=== PATIENT | female | born 1995 | race Caucasian/White ===

== ENCOUNTER 2023-01-18 10:18 | Emergency (ER) | payer OTHER, SELFPAY ==
[2023-01-18] VITALS (17 sets, daily range): BP systolic 105–128; BP diastolic 59–79; PULSE 59–98; RESP 11–22; TEMP 36.9; O2SAT 97–100
--- NOTE | ~2023-01-18 | CT_ITS ---
EXAMINATION: CTA brain carotid DATE: 01/18/2023 14:45 INDICATION: Dizziness. TECHNIQUE: Computed tomographic angiography (CTA) of the head was performed without and with 100 mL O mnipaque-350 intravenous contrast. CTA of the neck was performed with intravenous contrast. Automated exposure control and iterative reconstruction technique were employed. The dose-length product was 1 673.52 mGy-cm. Maximum intensity projection and volume rendered 3D-reconstructions were created by torsten technologist on a separate workstation. COMPARISON: None. FINDINGS: HEAD CTA: There is no intracranial hemorrhage, acute infarction, or abnormal intracranial mass lesion . The ventricles are normal in size. The paranasal sinuses are clear. The mastoid air cells are chandrika l. The orbits are normal. The vertebral arteries dominant. There is no significant stenosis of basila r artery or the posterior cerebral arteries. There is no significant stenosis of the intracranial int ernal carotid arteries or anterior or middle cerebral arteries. Anterior communicating artery is norm al. The posterior communicating arteries are normal. There is no aneurysm. NECK CTA: There is mild scarring at the lung apices. There are no pathologically enlarged lymph nodes . There is no significant stenosis of the vertebral arteries. There is no visible plaque in the proxi mal internal carotid arteries. There is 0% stenosis of the proximal right internal carotid artery rel ative to normal distal artery lumen diameter (NASCET criteria). There is 0% stenosis of the proximal left internal carotid artery relative to normal distal artery lumen diameter. There is mild thoracic kyphosis. IMPRESSION: 1. Normal brain. No aneurysm or significant intracranial internal stenosis. 2. 0% stenosis of the proximal internal carotid arteries relative to normal distal artery lumen diame ters (NASCET criteria). Reviewed, dictated and finalized at location E. IMPRESSION: 1. Normal brain. No aneurysm or significant intracranial internal stenosis. 2. 0% stenosis of the proximal internal carotid arteries relative to normal dis sampson artery lumen diameters (NASCET criteria).
--- NOTE | 2023-01-18 12:53 | ED.DIZZY ---
HPI - Dizziness General Chief Complaint: Dizziness Stated Complaint: Dizzy spells Time Seen by Provider: 01/18/23 12:52 History of Present Illness HPI Narrative: Patient is a healthy 27-year-old female here with dizziness. Patient states that the dizziness has been intermittent over the last 4 days. First episode began she was reaching up and looking upwards to grab something off of a shelf. She notes that she had an episode of her vision going black and then when it returned a few seconds later she felt dizziness. She describes the dizziness as feeling like she may pass out with her vision tunneling in and out and her vision slanting sideways. She feels as though she may fall over and is unsteady on her feet when this occurs. She notes it has been intermittent and the next episode occurred last night and again this morning. This morning's episode seemed to be much worse and associated with a diffuse headache which prompted her visit to the emergency department. No prior history of migraines or vertigo in the past. No recent illnesses. She has had normal p.o. intake and has not had any diarrhea or vomiting. She notes no upper or lower extremity weakness, no facial asymmetry. No prior history of PE/DVT. No prodromal chest pain or shortness of breath. Last menstrual period was last week and normal in heaviness. Related Data Allergies Allergy/AdvReac Type Severity Reaction Status Date / Time No Known Allergies Allergy Verified 01/18/23 11:54 Review of Systems Review of Systems: All systems reviewed & are unremarkable except as noted in HPI and below PMFSH Past Medical History Medical History (Updated 01/18/23 @ 16:05 by Radha Waldron MD) Anxiety Asthma H/O gastroesophageal reflux (GERD) Family History Family History (Updated 01/18/23 @ 09:37 by Chandrika Palomino MA) Grandparent Diabetes mellitus Hypertension Depression Cerebrovascular accident Social History Social History (Updated 01/18/23 @ 09:39 by Chandrika Palomino MA) Smoking status: Never smoker Alcohol intake: current Alcohol use details: Beer Substance use: never Substance use type: does not use Living arrangements: with family Occupation/Education: occupation Additional occupation/education comments: [employer] Exam Narrative: GENERAL: Well-appearing, well-nourished, and in no acute distress. HEAD: Normocephalic, atraumatic. EYES: PERRLA and EOMI. ENT: Nares clear. Mucous membranes moist. NECK: Supple. CHEST: Clear to auscultation. No respiratory distress. HEART: Regular rate and rhythm. Normal peripheral pulses. ABDOMEN: Soft, nontender, nondistended. EXTREMITIES: Normal range of motion. No edema. SKIN: Warm, dry, no rash. NEURO: No focal deficits. Alert and oriented x3. Normal [id number], normal [id number]. No motor or sensory deficits in upper lower extremities or face. She does have a bilateral fatigable slow horizontal nystagmus, no vertical or rotary nystagmus appreciated. PSYCH: Normal mood and affect. Course Course Emergency Course: Chart review performed, patient here for intermittent dizziness. Triage vitals within normal limits. One prior visit in our system for a sinus infection in 2019. It appears she had a scheduled office visit today which was canceled. Orthostatic vitals performed in triage show increase in HR from sitting to standing but no change in blood pressure. Patient seen evaluated, exam and history consistent with peripheral vertigo. Given symptoms are positional in nature and present horizontal nystagmus. No vascular risk factors. She does note that for symptoms began when she was looking up right, will do CTA as well as CT head to evaluate for possible vascular cause. Meclizine, IV fluids ordered. No prodromal chest pain or shortness of breath, PERC and well's low risk, will forego a D-dimer at this time. test ordered. Lab work and imaging reviewed.
[2023-01-18] MEDS: MECLIZINE HCL 25 MG TABLET PO (14:04)
[2023-01-18] MEDS: SODIUM CHLORIDE 0.9% IV 1,000 ML 999 ML IV CONT (14:04)
[2023-01-18 14:16] LABS: Basophils Absolute Auto 0.1 K/mm3 (0.0-0.1); Basophils Percent Auto 0.8 % (0.2-1.2); Hematocrit 43.6 % (37.0-47.0); Hemoglobin 14.9 g/dL (12.0-15.0); Immature Granulocyte Absolute 0.03 K/mm3 (0.00-0.031); Immature Granulocyte Percent A 0.3 % (0-0.5); Mean Corpuscular HGB Conc 34.2 g/dl (32-36); Mean Corpuscular Hemoglobin 31.1 pg (26-34); Mean Platelet Volume 10.2 fl (7.4-10.4); Monocytes Absolute Auto 0.5 K/mm3 (0.1-0.6); Monocytes Percent Auto 5.8 % (2.6-8.5); Neutrophils Absolute Auto 6.6 K/mm3 (1.3-6.7); Neutrophils Percent Auto 74.1 % (45.5-73.1); Platelet Count Result 245 k/mm3 (150-375); Red Blood Count 4.79 M/mm3 (4.2-5.4); Red Cell Distribution Width 11.9 % (11.5-14.5)
[2023-01-18 14:21] LABS: Appearance Urine Clear (Clear); Bilirubin Urine Negative (Negative); Blood Urine Negative (Negative); Color Urine Yellow (Yellow); Glucose Urine UA Negative (Negative); Ketones Urine Negative (Negative); Leukocyte Esterase Ur Negative LEU/UL (Negative); Nitrate Urine Negative (Negative); Protein Urine Negative (Negative); Urobilinogen Urine 0.2 mg/dL (<2.0); pH Urine 8.5 (5.0-9.0)
[2023-01-18 14:22] LABS: Add Urine Microscopic? NO
[2023-01-18 14:26] LABS: Alanine Aminotransferase 16 U/L (6-35); Albumin Level 4.1 g/dL (3.5-5.1); Alkaline Phosphatase 53 U/L (38-126); Anion Gap 8 mmol/L (8-16); Aspartate Amino Transferase 22 U/L (14-36); Bilirubin,Total 0.4 mg/dL (0.2-1.3); Blood Urea Nitrogen 12 mg/dL (7-17); Calcium 8.8 mg/dL (8.4-10.2); Carbon Dioxide 29 mmol/L (22-30); Chloride 104 mmol/L (98-107); Estimated CRCL calculation 92 ml/min; Estimated Glomerular Filt Rate > 60; Glucose 96 mg/dL (65-110); Magnesium 2.2 mg/dL (1.6-2.3); Potassium 3.9 mmol/L (3.4-5.0); Sodium 141 mmol/L (137-145)
--- NOTE | 2023-01-18 16:01 | PC.NURSE ---
Ambulatory to restroom. Reports decrease in dizziness.
== END 2023-01-18 16:28 | disposition home or self-care (01) ==
PROVIDERS: Emergency Provider Student in an Organized Health Care Education/Training Program; PCP Physician Assistant Medical
DX: R42 Dizziness and giddiness (principal); J45.909 Unspecified asthma, uncomplicated; K21.9 Gastro-esophageal reflux disease without esophagitis
CPT/HCPCS: 36415; 70496; 70498; 80053; 81003; 81025; 83735; 85025; 96360; 96361; 99284; A9270; J7030; Q9967